=== PATIENT | female | born 1935 | race Caucasian/White ===

== ENCOUNTER 2018-06-19 11:12 | Outpatient (CLI) | payer MEDICARE ==
--- NOTE | 2018-06-19 13:26 | CT ---
CT lumbar spine without IV contrast INDICATION: Spinal stenosis with back pain and bilateral leg pain Comparison: MR the lumbar spine dated September 01, 2010 FINDINGS: Bones: There is prominent levoscoliosis with left lateral listhesis of L3 on L4 and L4 and L5. Disc spaces: There is advanced loss of disc space height at all lumbar intervertebral levels but most pronounced at L2-3 through L5-S1. Osseous central canal and neural foramina: At L5-S1, there is an asymmetric to left disc osteophyte complex. There are laminectomy changes at L5 -S1. No appreciable osseous central canal or neural foraminal narrowing is demonstrated. At L4-5, there is disc osteophyte complex. There are laminectomy changes at L4-5. No appreciable osse ous central canal or neural foraminal narrowing is demonstrated. At L3-4, there is a broad-based bulge and facet joint degenerative change likely inducing at least mi ld central canal narrowing. There is moderate right neural foraminal narrowing. At L2-3, there is a broad-based bulge with facet joint degenerative change likely inducing mild right neural foraminal narrowing. At L1-L2, there is mild broad-based bulge but no appreciable central canal or neural foraminal narrow ing. At T12-L1, there is no appreciable central canal or neural foraminal narrowing. Retroperitoneum and paravertebral soft tissues: There are scattered colonic diverticula. There is mod erate calcification involving the abdominal pelvic vasculature. The gallbladder is surgically absent. IMPRESSION: 1. 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 2. Likely mild central canal narrowing and moderate right neural foraminal narrowing at L3-4. 3. Mild right neural foraminal narrowing at L2-3.
== END 2018-06-19 11:13 | disposition home or self-care (01) ==
LOC: BICCT 11:12
PROVIDERS: ATTEND Anesthesiology Pain Medicine
DX: M48.062 Spinal stenosis, lumbar region with neurogenic claudication (principal); M47.816 Spondylosis without myelopathy or radiculopathy, lumbar region; M47.817 Spondylosis without myelopathy or radiculopathy, lumbosacral region
CPT/HCPCS: 72131